=== PATIENT | male | born 1935 | race Caucasian/White ===

== ENCOUNTER 2018-12-21 19:29 | Observation (INO) ==
[2018-12-21] MEDS ORDERED: 0.9 % Sodium Chloride 1,000 ML IVC ONE (19:57)
[2018-12-21 20:35] LABS: Basophils % 0.1 %; Eosinophils # 0.1 K/mcL (0.0-0.6); Eosinophils % 0.6 %; Hematocrit 43.3 % (37.5-50.1); Hemoglobin 14.4 g/dL (12.9-16.9); Immature Granulocytes % 0.4 % (0-4); Lymphocytes # 0.6 K/mcL (0.6-4.6); Lymphocytes % 4.6 %; Mean Corpuscular HGB Conc 33.3 g/dL (31.6-35.5); Mean Corpuscular Hemoglobin 30.6 pg (28.0-33.3); Mean Corpuscular Volume 92.1 fL (83.0-100.0); Mean Platelet Volume 9.8 fL (9.4-12.4); Monocytes # 1.2 K/mcL (0.0-1.3); Monocytes % 9.5 %; Neutrophils # 10.5 K/mcL (1.6-8.9); Platelet Count 141 K/mcL (140-400); Red Cell Distribution Width 13.4 % (11.5-14.5); Segmented Neutrophils % 84.8 %
[2018-12-21 20:53] LABS: BUN/Creatinine Ratio 20 (6-26); Blood Urea Nitrogen 19 mg/dL (8-23); Calcium 8.9 mg/dL (8.6-10.3); Carbon Dioxide 26 mEq/L (23-29); Chloride 104 mEq/L (98-107); Glucose 114 mg/dL (70-105); Osmolality,Calculated 287 (280-300); Potassium 3.4 mEq/L (3.5-5.1); Sodium 137 mEq/L (136-145); eGFR For Non-African Americans > 60 (> 60)
[2018-12-21] MEDS ORDERED: Azithromycin 500 MG in D5% in Water 250 ML IVPB ONE (21:20)
[2018-12-21] MEDS ORDERED: cefTRIAXone 2,000 MG in Water for inj. (sterile) 20 ML 20 ML IVP ONE (21:26)
--- NOTE | 2018-12-21 22:41 | Emergency Department Note ---
Disposition Clinical Impression: Unable to ambulate, SOB (shortness of breath) Community acquired pneumonia Qualifiers: Laterality: unspecified laterality Qualified Code(s): J18.9 - Pneumonia, unspecified organism Fever Qualifiers: Fever type: unspecified Qualified Code(s): R50.9 - Fever, unspecified Disposition: Admitted As Inpatient Condition: Fair Referrals: Symone Carrasco MD [Primary Care Provider] - Forms: ED Satisfaction Letter Time of Disposition: 22:42 General Adult HPI - General Chief complaint: ED Shortness of Breath/Dyspnea Stated complaint: Flu symptoms Time Seen by Provider: 12/21/18 19:35 Source: patient, EMS Limitations: no limitations - History of Present Illness Pain Scale: 0 - Related Data Allergies Allergy/AdvReac Type Severity Reaction Status Date / Time Iodinated Contrast- Oral and Allergy Hives Verified 02/18/17 10:59 IV Dye [Iodinated Contrast Media - Oral and] Past Medical History - Past Medical History Medical history: Reports: atrial fibrillation, coronary artery disease, hyp erlipidemia, myocardial infarction, thyroid disease, other - Social History Smoking Status: Never smoker Alcohol use: Reports: none Drug use: Reports: none Physical Exam - General Limitations: no limitations General appearance: alert, in no apparent distress Course Vital Signs Temperature 101.5 F H 12/21/18 19:33 Pulse Rate 72 12/21/18 19:33 Respiratory Rate 20 12/21/18 19:33 Blood Pressure 147/70 12/21/18 19:33 O2 Sat by Pulse Oximetry 96 12/21/18 19:33 Temperature 101.5 F H 12/21/18 19:33 Pulse Rate 76 12/21/18 22:26 Respiratory Rate 20 12/21/18 22:26 Blood Pressure 138/68 12/21/18 22:26 O2 Sat by Pulse Oximetry 94 12/21/18 22:26 Oxygen Delivery Oxygen Delivery Room Air Medical Decision Making - Lab Data Result diagrams: 12/21/18 20:22 12/21/18 20:22 Lab Results 12/21/18 12/21/18 12/21/18 Range/Units 20:22 20:22 20:22 WBC 12.4 H (4.3-11.1) K/mcL RBC 4.70 (4.19-5.50) M/mcL Hgb 14.4 (12.9-16.9) g/dL Hct 43.3 (37.5-50.1) % MCV 92.1 (83.0-100.0) fL MCH 30.6 (28.0-33.3) pg MCHC 33.3 (31.6-35.5) g/dL RDW 13.4 (11.5-14.5) % Plt Count 141 (140-400) K/mcL MPV 9.8 (9.4-12.4) fL Immature Gran % 0.4 (0-4) % Seg Neutrophils % 84.8 % Lymphocytes % 4.6 % Monocytes % 9.5 % Eosinophils % 0.6 % Basophils % 0.1 % Neutrophils # 10.5 H (1.6-8.9) K/mcL Lymphocytes # 0.6 (0.6-4.6) K/mcL Monocytes # 1.2 (0.0-1.3) K/mcL Eosinophils # 0.1 (0.0-0.6) K/mcL Basophils # 0.0 (0.0-0.2) K/mcL Sodium 137 (136-145) mEq/L Potassium 3.4 L (3.5-5.1) mEq/L Chloride 104 (98-107) mEq/L Carbon Dioxide 26 (23-29) mEq/L BUN 19 (8-23) mg/dL Creatinine 0.95 (0.70-1.30) mg/dL Est GFR ( Amer) > 60 (> 60) Est GFR (Non-Af Amer) > 60 (> 60) BUN/Creatinine Ratio 20 (6-26) Glucose 114 H (70-105) mg/dL Calculated Osmolality 287 (280-300) Lactic Acid 1.8 (0.5-2.2) mmol/L Calcium 8.9 (8.6-10.3) mg/dL Attestation Statement - Attestation Attestation: I examined this patient and my medical decision-making was reviewed with the [employer]ER/PA/Advanced Practice Nurse/Resident Physician. I agree with the documented findings, disposition and treatment plan as described except to the extent set forth below. I did see the patient spoke with him and examine him and is spoke with his family and he does have significant fever and weakness the point that he is not able to ambulate as well as respiratory symptoms including a cough. He denies any shortness of breath but daughter thinks he is short of breath. Is admitted on IV antibiotics, cultures, hospitalist has accepted the patient for admission 2040
--- NOTE | 2018-12-21 22:53 | Emergency Department Note ---
Disposition Clinical Impression: Unable to ambulate, SOB (shortness of breath) Community acquired pneumonia Qualifiers: Laterality: unspecified laterality Qualified Code(s): J18.9 - Pneumonia, unspecified organism Fever Qualifiers: Fever type: unspecified Qualified Code(s): R50.9 - Fever, unspecified Disposition: Admitted As Inpatient Condition: Fair Referrals: Symone Carrasco MD [Non-Partnered Physician] - Forms: ED Satisfaction Letter Time of Disposition: 23:05 General Adult HPI - General Chief complaint: ED Shortness of Breath/Dyspnea Stated complaint: Flu symptoms Time Seen by Provider: 12/21/18 19:35 Source: patient, EMS Limitations: no limitations - History of Present Illness HPI Narrative: Dayday Almonte is an 83-year-old male presenting with productive cough and weakness. He has a past medical history of atrial fibrillation, no longer on blood thinner, CAD, and hypertension. Patient states that he began to have a productive cough on Saturday, denies any hemoptysis. On Saturday he began to have increased weakness with difficulty standing and then today the patient was unable to stand or ambulate due to the extreme weakness. Patient admits to fever, chills, productive cough and shortness of breath. He denies any headache, dizziness, vision or hearing changes, difficulty swallowing, chest pain, abdominal pain, change in diarrhea or constipation, dysuria, calf pain. Pain Scale: 0 - Related Data Allergies Allergy/AdvReac Type Severity Reaction Status Date / Time Iodinated Contrast- Oral and Allergy Hives Verified 02/18/17 10:59 IV Dye [Iodinated Contrast Media - Oral and] Constitutional: Reports: fever, chills, weakness Eyes: Denies: vision change ENT ED: Reports: congestion. Denies: hearing loss Cardiovascular: Denies: chest pain, palpitations, dyspnea on exertion, syncope Respiratory: Reports: cough, dyspnea Gastrointestinal: Denies: abdominal pain, nausea, vomiting Genitourinary: Denies: dysuria Musculoskeletal: Denies: back pain Integumentary: Denies: rash Neurological: Reports: weakness. Denies: paresthesias Psychiatric: Denies: anxiety, depression Endocrine: Reports: fatigue Past Medical History - Past Medical History Medical history: Reports: atrial fibrillation, coronary artery disease, hyperlipidemia, myocardial infarction, thyroid disease, other - Social History Smoking Status: Never smoker Alcohol use: Reports: none Drug use: Reports: none Physical Exam Gen.: Vitals noted. Moderate distress. AAOx3, resting comfortably in bed. HEENT: PERRL/EOMI, oropharynx clear, Normocephalic, atraumatic, MMM, tympanic membranes clear. Neck: Supple. No adenopathy. Trachea midline. Cardiac: RRR, no murmur, +S1/S2, No BLE edema Pulmonary: Distant breath sounds bilaterally, bilateral wheezes present, no rales or rhonchi, equal chest expansion, unlabored breathing Abdomen: soft, nontender, BS noted, no guarding, no palpable HSM Back: Nontender throughout. Skin: warm and dry, no visible lesions. MSK: ROM intact, no joint swelling noted, gait no assessed while in bed. Non tender calf or clubbing Neuro: A&Ox3, moves all extremities, no focal deficits, sensation intact, CN2-12 intact Psych: Appropriate mood and behavior, AOx3 - General Limitations: no limitations General appearance: alert, in no apparent distress Course Course Narrative: Patient seen and examined at bedside, discussed past medical history and history of present illness. Patient is currently febrile, as well as having productive cough. At this time we will do some labs, CBC, BMP, lactate, influenza antigens, 1 L normal saline bolus, Blood cultures, chest x-ray. Chest x-ray showed stable mild cardiomyopathy, grossly clear lungs, and chronic right shoulder rotator cuff. CBC significant for white blood cell count 12.4, lactic acid within normal limits, influenza antigens were negative. U/A and blood cultures remain pending. At this time patient will be started on azithromycin and ceftriaxone empirically. Discussed case with hospitalist, patient has fever, productive cough, and extreme weakness and inability to ambulate. Hospitalist recommended urine antigens for strept and legionella as well as respiratory infection panel which remains pending. Hospitalist has agreed to accept admission. Vital Signs Temperature 101.5 F H 12/21/18 19:33 Pulse Rate 72 12/21/18 19:33 Respiratory Rate 20 12/21/18 19:33 Blood Pressure 147/70 12/21/18 19:33 O2 Sat by Pulse Oximetry 96 12/21/18 19:33 Temperature 101.5 F H 12/21/18 19:33 Pulse Rate 76 03/03/19 22:26 Respiratory Rate 20 12/21/18 22:26 Blood Pressure 138/68 12/21/18 22:26 O2 Sat by Pulse Oximetry 94 12/21/18 22:26 Oxygen Delivery Oxygen Delivery Room Air Medical Decision Making - Medical Records Medical records reviewed: Yes I reviewed the patient's medical records. - Lab Data Lab results reviewed: Yes I reviewed the patient's lab results. Result diagrams: 12/21/18 20:22 12/21/18 20:22 Lab Results 12/21/18 12/21/18 12/21/18 Range/Units 20:22 20:22 20:22 WBC 12.4 H (4.3-11.1) K/mcL RBC 4.70 (4.19-5.50) M/mcL Hgb 14.4 (12.9-16.9) g/dL Hct 43.3 (37.5-50.1) % MCV 92.1 (83.0-100.0) fL MCH 30.6 (28.0-33.3) pg MCHC 33.3 (31.6-35.5) g/dL RDW 13.4 (11.5-14.5) % Plt Count 141 (140-400) K/mcL MPV 9.8 (9.4-12.4) fL Immature Gran % 0.4 (0-4) % Seg Neutrophils % 84.8 % Lymphocytes % 4.6 % Monocytes % 9.5 % Eosinophils % 0.6 % Basophils % 0.1 % Neutrophils # 10.5 H (1.6-8.9) K/mcL Lymphocytes # 0.6 (0.6-4.6) K/mcL Monocytes # 1.2 (0.0-1.3) K/mcL Eosinophils # 0.1 (0.0-0.6) K/mcL Basophils # 0.0 (0.0-0.2) K/mcL Sodium 137 (136-145) mEq/L Potassium 3.4 L (3.5-5.1) mEq/L Chloride 104 (98-107) mEq/L Carbon Dioxide 26 (23-29) mEq/L BUN 19 (8-23) mg/dL Creatinine 0.95 (0.70-1.30) mg/dL Est GFR ( Amer) > 60 (> 60) Est GFR (Non-Af Amer) > 60 (> 60) BUN/Creatinine Ratio 20 (6-26) Glucose 114 H (70-105) mg/dL Calculated Osmolality 287 (280-300) Lactic Acid 1.8 (0.5-2.2) mmol/L Calcium 8.9 (8.6-10.3) mg/dL Chlamy pneumoniae PCR (Not Detect) Adenovirus (PCR) (Not Detect) B. pertussis DNA (PCR) (Not Detect) B.parapertussis DNA PCR (Not Detect) Coronavirus OC43 (PCR) (Not Detect) Coronavirus HKU1 (PCR) (Not Detect) Coronavirus 229E (PCR) (Not Detect) Coronavirus NL63 (PCR) (Not Detect) Human Metapneumovir PCR (Not Detect) Influenza A (H1) PCR (Not Detect) Influ A (H1N1/09) PCR (Not Detect) Influenza A (H3) PCR (Not Detect) Influenza A Untype (PCR) (Not Detect) Influenza Type B (PCR) (Not Detect) M.pneumoniae DNA (PCR) (Not Detect) Parainfluenza 1 (PCR) (Not Detect) Parainfluenza 2 (PCR) (Not Detect) Parainfluenza 3 (PCR) (Not Detect) Parainfluenza 4 (PCR) (Not Detect) RSV (PCR) (Not Detect) Entero/Rhino (PCR) (Not Detect) 12/21/18 Range/Units 22:03 WBC (4.3-11.1) K/mcL RBC (4.19-5.50) M/mcL Hgb (12.9-16.9) g/dL Hct (37.5-50.1) % MCV (83.0-100.0) fL MCH (28.0-33.3) pg MCHC (31.6-35.5) g/dL RDW (11.5-14.5) % Plt Count (140-400) K/mcL MPV (9.4-12.4) fL Immature Gran % (0-4) % Seg Neutrophils % % Lymphocytes % % Monocytes % % Eosinophils % % Basophils % % Neutrophils # (1.6-8.9) K/mcL Lymphocytes # (0.6-4.6) K/mcL Monocytes # (0.0-1.3) K/mcL Eosinophils # (0.0-0.6) K/mcL Basophils # (0.0-0.2) K/mcL Sodium (136-145) mEq/L Potassium (3.5-5.1) mEq/L Chloride (98-107) mEq/L Carbon Dioxide (23-29) mEq/L BUN (8-23) mg/dL Creatinine (0.70-1.30) mg/dL Est GFR ( Amer) (> 60) Est GFR (Non-Af Amer) (> 60) BUN/Creatinine Ratio (6-26) Glucose (70-105) mg/dL Calculated Osmolality (280-300) Lactic Acid (0.5-2.2) mmol/L Calcium (8.6-10.3) mg/dL Chlamy pneumoniae PCR Not Detected (Not Detect) Adenovirus (PCR) Not Detected (Not Detect) B. pertussis DNA (PCR) Not Detected (Not Detect) B.parapertussis DNA PCR Not Detected (Not Detect) Coronavirus OC43 (PCR) Not Detected (Not Detect) Coronavirus HKU1 (PCR) Not Detected (Not Detect) Coronavirus 229E (PCR) Not Detected (Not Detect) Coronavirus NL63 (PCR) Not Detected (Not Detect) Human Metapneumovir PCR Not Detected (Not Detect) Influenza A (H1) PCR Not Detected (Not Detect) Influ A (H1N1/09) PCR Not Detected (Not Detect) Influenza A (H3) PCR Not Detected (Not Detect) Influenza A Untype (PCR) Not Detected (Not Detect) Influenza Type B (PCR) Not Detected (Not Detect) M.pneumoniae DNA (PCR) Not Detected (Not Detect) Parainfluenza 1 (PCR) Not Detected (Not Detect) Parainfluenza 2 (PCR) Not Detected (Not Detect) Parainfluenza 3 (PCR) Not Detected (Not Detect) Parainfluenza 4 (PCR) Not Detected (Not Detect) RSV (PCR) Not Detected (Not Detect) Entero/Rhino (PCR) Not Detected (Not Detect) - Radiology Data Radiology results reviewed: Yes I reviewed the patient's radiology results. Chest X-Ray 12/21/18 19:53 IMPRESSION: Stable mild cardiomegaly. Grossly clear lungs. Chronic right shoulder rotator cuff tear. D/ / Dimitri Fall MD / Dimitri Fall MD Interpreting Provider: Dimitri Fall MD
[2018-12-21 23:03] LABS: Adenovirus Not Detected (Not Detect); Bordetella Pertussis Not Detected (Not Detect); Chlamydophila pneumoniae Not Detected (Not Detect); Coronavirus 229E Not Detected (Not Detect); Coronavirus HKU1 Not Detected (Not Detect); Coronavirus NL63 Not Detected (Not Detect); Coronavirus OC43 Not Detected (Not Detect); Human Metapneumovirus Not Detected (Not Detect); Human Rhinovirus/Enterovirus Not Detected (Not Detect); Influenza A Subtype 2009 H1 Not Detected (Not Detect); Influenza A Untypeable Not Detected (Not Detect); Influenza B Not Detected (Not Detect); Mycoplasma pneumoniae Not Detected (Not Detect); Parainfluenza Virus 1 Not Detected (Not Detect); Parainfluenza Virus 2 Not Detected (Not Detect); Parainfluenza Virus 3 Not Detected (Not Detect); Parainfluenza Virus 4 Not Detected (Not Detect); Respiratory Syncytial Virus Not Detected (Not Detect)
[2018-12-22] MEDS ORDERED: Potassium Chloride Elixir 20 MEQ/15 ML UDC PO ONE (00:09)
[2018-12-22] MEDS ORDERED: 0.9 % Sodium Chloride 1,000 ML IVC SCH (00:15)
--- NOTE | 2018-12-22 00:29 | Internal Med History&Physical ---
Date of Encounter: 12/21/18 Time of Encounter: 23:50 Internal Medicine - H&P: HPI Chief complaint: cough Admitted From: Home Plans for Post Hospital Care: Home () History of present illness: Dayday Almonte is a pleasant 83-year-old man with an unclear past medical history as he is not well versed in this situation but on chart review is noted to have hypertension, coronary artery disease and atrial fibrillation not on anticoagulants as emergency room complaining of productive cough over the past 3 days with thick yellowish phlegm produced. He has also had increased weakness and generalized malaise with fever and chills now compounded by shortness of breath. He denies being an active smoker stating that he quit in 1969. He denies any chest pain, abdominal pain, nausea, vomiting or diarrhea. He denies any ill contacts at home. In the ER he was notably febrile at 101.5F. Lab work revealed a leukocyte count of 12.4 and negative respiratory virus panel. Chest x-ray report revealed no anomalies however on my interpretation there seems to be a developing right-sided infiltrate. He is now admitted for further care. Family history reviewed and found non-contributory. I obtained a history of his medications from his retail pharmacy to ascertain what he takes and concurrently what his comorbid conditions are. Vitals: Reviewed General: Well-developed elderly male lying in bed in no acute distress. Skin: Warm and supple. HEENT: Dry mucous membranes. No conjunctivae pallor. Neck: No lymphadenopathy. No JVD. No carotid bruits. No palpable thyroid. Chest: Diminished thoracic expansion. Reduced breath sounds in both lung rajput with fine rales auscultated in the right base predominantly and scattered wheezes. Heart: Normal S1 & S2; rhythmic. No rubs or murmurs. Abdomen: Non-distended, soft and non-tender to palpation. No peritoneal reaction. Extremities: No clubbing, cyanosis or edema. No calf tenderness. Normal distal pulses. Neurological: Awake, alert and oriented to person, place and time. No focal deficits. Psych: Affect appropriate. Past Med Surg Social Fam HX - Past Medical History Medical history: atrial fibrillation, coronary artery disease, hyperlipidemia, myocardial infarction, thyroid disease, other Additional medical history: enlarged prostate - Past Surgical History Additional surgical history: prostate sx - Social History Smoking Status: Never smoker Smokeless Tobacco Status: No Alcohol use: none Drug use: none Internal Medicine - H&P: Meds Allergy/AdvReac Type Severity Reaction Status Date / Time Iodinated Contrast- Oral and Allergy Hives Verified 02/18/17 10:59 IV Dye [Iodinated Contrast Media - Oral and] All Systems PM: A 10-system review of systems was performed and is negative for pertinent findings except as documented above in the HPI. - Constitutional Vitals: Temp Pulse Resp BP Pulse Ox 101.5 F H 76 18 131/71 94 12/21/18 19:33 12/21/18 22:26 12/21/18 23:17 12/21/18 23:17 12/21/18 22:26 Exam: As above. Internal Med - H&P Results - Labs CBC & Chem 7: 12/21/18 20:22 12/21/18 20:22 Labs: Short CBC 12/21/18 Range/Units 20:22 WBC 12.4 H (4.3-11.1) K/mcL Hgb 14.4 (12.9-16.9) g/dL Hct 43.3 (37.5-50.1) % Plt Count 141 (140-400) K/mcL Neutrophils # 10.5 H (1.6-8.9) K/mcL BMP 12/21/18 20:22 Sodium 137 Potassium 3.4 L Chloride 104 Carbon Dioxide 26 BUN 19 Creatinine 0.95 Glucose 114 H Calcium 8.9 - Impressions ITS Impressions Chest X-Ray 12/21/18 19:53 IMPRESSION: Stable mild cardiomegaly. Grossly clear lungs. Chronic right shoulder rotator cuff tear. D/ / Dimitri Fall MD / Dimitri Fall MD Interpreting Provider: Dimitri Fall MD - Assessment and Plan (1) Sepsis due to pneumonia Current Visit: Yes Status: Acute Assessment and plan: Sepsis syndrome as evidenced by fever and leukocytosis with a suspected pulmo nary source. Being a community-acquired process we will start the patient on ceftriaxone and azithromycin empirically. Blood cultures have been sent and we will collect sputum culture. Urine antigen testing will also be sent. Advise to obtain a chest CT without contrast for better evaluation of his prominent parenchyma given the discrepant results on x-ray but my high clinical suspicion. Fluid resuscitation ordered. Symptomatically relief measures with acetaminophen, nebulizer and antitussive a gents. (2) CAD (coronary artery disease) Current Visit: Yes Status: Acute Assessment and plan: Will continue the daily daily long acting nitrate and statin therapy. Currently asymptomatic. Qualifiers: Coronary Disease-Associated Artery/Lesion type: [place] artery [place] vs. transplanted heart: [place] heart Associated angina: without angina Qualified Code(s): I25.10 - Atherosclerotic heart disease of [place] coronary artery without angina pectoris (3) HTN (hypertension) Current Visit: Yes Status: Acute Assessment and plan: Continue daily lisinopril. Currently well controlled. Qualifiers: Hypertension type: essential hypertension Qualified Code(s): I10 - Essential (primary) hypertension (4) Hypothyroid Current Visit: Yes Status: Acute Assessment and plan: Seems clinically euthyroid. Will check biochemical status and continue levothyroxine. Qualifiers: Hypothyroidism type: unspecified Qualified Code(s): E03.9 - Hypothyroidism, unspecified (5) BPH (benign prostatic hyperplasia) Current Visit: Yes Status: Acute Assessment and plan: On finasteride. Qualifiers: Lower urinary tract symptom presence: unspecified whether lower urinary tract symptoms present Qualified Code(s): N40.0 - Benign prostatic hyperplasia without lower urinary tract symptoms - Time Spent With Patient Total time spent is greater than 50% in coordination of care (as documented) at patient's floor/unit and/or counseling patient: Greater than 35 minutes
[2018-12-22] MEDS: GuaiFENesin/Dextromethorphan TABLET PO SCH ×2 (01:24→07:56)
[2018-12-22] MEDS: Acetaminophen 325 MG TABLET PO PRN ×2 (01:24→16:55)
[2018-12-22] MEDS: Ipratropium/Albuterol Neb 3 ML IH SCH ×3 (04:13→07:26)
[2018-12-22 05:45] LABS: Basophils % 0.1 %; Eosinophils % 0.3 %; Hematocrit 37.6 % (37.5-50.1); Immature Granulocytes % 0.4 % (0-4); Lymphocytes # 0.6 K/mcL (0.6-4.6); Lymphocytes % 5.4 %; Mean Corpuscular HGB Conc 33.8 g/dL (31.6-35.5); Mean Corpuscular Hemoglobin 30.5 pg (28.0-33.3); Mean Corpuscular Volume 90.2 fL (83.0-100.0); Mean Platelet Volume 10.1 fL (9.4-12.4); Monocytes # 1.2 K/mcL (0.0-1.3); Monocytes % 10.5 %; Neutrophils # 9.3 K/mcL (1.6-8.9); Platelet Count 134 K/mcL (140-400); Red Blood Count 4.17 M/mcL (4.19-5.50); Red Cell Distribution Width 13.6 % (11.5-14.5); Segmented Neutrophils % 83.3 %
[2018-12-22 05:46] LABS: Hemoglobin 12.7 g/dL (12.9-16.9)
[2018-12-22] MEDS ORDERED: *HR* Heparin 5,000 UNIT/ML VIAL SQ SCH (06:00)
[2018-12-22 06:01] LABS: BUN/Creatinine Ratio 18 (6-26); Blood Urea Nitrogen 16 mg/dL (8-23); Calcium 8.5 mg/dL (8.6-10.3); Carbon Dioxide 24 mEq/L (23-29); Chloride 109 mEq/L (98-107); Glucose 116 mg/dL (70-105); Osmolality,Calculated 288 (280-300); Potassium 3.7 mEq/L (3.5-5.1); Sodium 138 mEq/L (136-145); eGFR For Non-African Americans > 60 (> 60)
[2018-12-22] MEDS ORDERED: Azithromycin 500 MG in D5% in Water 250 ML IVPB SCH (09:00)
[2018-12-22] MEDS ORDERED: Finasteride 5 MG TABLET PO SCH (09:00)
[2018-12-22] MEDS ORDERED: cefTRIAXone 1,000 MG in Water for inj. (sterile) 20 ML 20 ML IVPB SCH (09:00)
[2018-12-22] MEDS ORDERED: Aspirin 81 MG TAB.CHEW PO SCH (09:00)
[2018-12-22 10:58] LABS: Bilirubin,Urine Negative (Negative); Blood,Urine Large (Negative); Clarity,Urine Cloudy (Clear); Color,Urine Dark Yellow (Yellow); Glucose,Urine (UA) Normal (Normal); Ketones,Urine Negative (Negative); Leukocyte Esterase,Urine Small (Negative); Nitrite,Urine Negative (Negative); PH,Urine 5.5 pH Units (5.0-8.0); Protein,Urine 100 mg/dL (Neg-Trace); Specific Gravity,Urine 1.017 (1.010-1.025); Urobilinogen,Urine Normal (Normal)
[2018-12-22 10:59] LABS: Hyaline Casts,Urine Few per lpf (None-Few); Squamous Epithelial Cell,Urine Many per lpf (None-Few)
[2018-12-22 11:11] LABS: RBC,Urine 30-50 per hpf (0-3)
[2018-12-22 11:13] LABS: Bacteria,Urine Moderate per hpf (None-Few)
[2018-12-22 12:17] VITALS: BP 112/49
--- NOTE | 2018-12-22 13:58 | Discharge Summary ---
- NOTES TO OUTPATIENT PROVIDER Notes to Outpatient Provider: PPC in 2- 5 days, ambulate slowly at home, do not sit or lie down for porlonged period of time Orders not resulted at time of discharge: Pending orders 12/21/18 20:22 Culture,Blood [BC] Stat 12/22/18 00:12 Culture,Sputum with Gram Stain [RM] Stat 12/22/18 09:15 Procalcitonin Stat Date of Encounter: 12/22/18 Time of Encounter: 13:56 - Discharge Diagnosis (1) Community acquired pneumonia Priority: Primary Status: Acute Qualifiers: Laterality: unspecified laterality Qualified Code(s): J18.9 - Pneumonia, unspecified organism Hospital course: Dayday Almonte is a pleasant 83-year-old man with an unclear past medical history as he is not well versed in this situation but on chart review is noted to have hypertension, coronary artery disease and atrial fibrillation not on anticoagulants as emergency room complaining of productive cough over the past 3 days with thick yellowish phlegm produced. He has also had increased weakness and generalized malaise with fever and chills now compounded by shortness of breath. He denies being an active smoker stating that he quit in 1969. He denies any chest pain, abdominal pain, nausea, vomiting or diarrhea. He denies any ill contacts at home. In the ER he was notably febrile at 101.5F. Lab work revealed a leukocyte count of 12.4 and negative respiratory virus panel. Pt was kept in the hospital and pt was given CT which showed that pt has viral pna, no other isseus, pt is being discharged for viral pna. Time: 35min - Time Spent with Patient Total time spent providing and/or coordinating discharge services: - Discharge Medications Prescriptions: New Levofloxacin [Levaquin] 500 mg PO DAILY #5 tablet Home Medications: Levofloxacin [Levaquin] 500 mg PO DAILY #5 tablet 12/22/18 [Rx] Allergies/Adverse Reactions: Allergy/AdvReac Type Severity Reaction Status Date / Time Iodinated Contrast- Oral and Allergy Hives Verified 02/18/17 10:59 IV Dye [Iodinated Contrast Media - Oral and] Date of admission: 12/21/18 23:11 Primary care physician: Symone Carrasco MD Consults: 12/22/18 07:42 PT [Consult to Physical Therapy] [CONS] Routine Comment: Evaluate, develop and implement POC Reason for Consult: debilty Does patient have active BEDREST order?: No Is patient medically & hemodynamically stable?: Yes Patient assessed for mobility or mobilized this visit?: Yes 12/22/18 07:43 OT [Consult to Occupational Therapy] [CONS] Routine Comment: Evaluate, develop and implement POC Reason for Consult: deblity Does patient have active BEDREST order?: No Is patient medically & hemodynamically stable?: Yes Patient assessed for mobility or mobilized this visit?: Yes 12/22/18 08:28 Consult to Nurse Navigator [CONS] Routine Comment: pneumonia - Constitutional Vitals: Temp Pulse Resp BP Pulse Ox 99.1 F 63 15 112/49 92 12/22/18 12:10 12/22/18 12:10 12/22/18 12:10 12/22/18 12:10 12/22/18 12:10 Exam: As above. - Patient Status Disposition: Home, Self-Care Condition: Fair - Discharge Instructions Follow Up With: Symone Carrasco MD [Primary Care Provider] -
== END 2018-12-22 18:13 | disposition home or self-care (01) ==
LOC: 3ANU 19:29 → EMEROOARM 19:29 → SUATTDRO 23:11 → 3ANU 23:25
PROVIDERS: ADMIT Internal Medicine; ATTEND Internal Medicine

== ENCOUNTER 2021-03-27 08:34 | Observation (INO) ==
[2021-03-27 09:09] LABS: Basophils % 0.3 %; Eosinophils # 0.5 K/mcL (0.0-0.6); Eosinophils % 5.7 %; Hematocrit 40.9 % (37.5-50.1); Hemoglobin 13.5 g/dL (12.9-16.9); Immature Granulocytes % 0.4 % (0-4); Lymphocytes # 0.5 K/mcL (0.6-4.6); Mean Corpuscular Hemoglobin 30.5 pg (28.0-33.3); Mean Corpuscular Volume 92.5 fL (83.0-100.0); Mean Platelet Volume 9.3 fL (9.4-12.4); Monocytes # 0.6 K/mcL (0.0-1.3); Monocytes % 6.1 %; Neutrophils # 7.4 K/mcL (1.6-8.9); Platelet Count 143 K/mcL (140-400); Red Blood Count 4.42 M/mcL (4.19-5.50); Red Cell Distribution Width 13.2 % (11.5-14.5); Segmented Neutrophils % 82.5 %
[2021-03-27 09:30] LABS: BUN/Creatinine Ratio 23 (6-26); Blood Urea Nitrogen 22 mg/dL (8-23); Carbon Dioxide 25 mEq/L (23-29); Chloride 108 mEq/L (98-107); Glucose 120 mg/dL (70-105); Osmolality,Calculated 297 (280-300); Potassium 3.6 mEq/L (3.5-5.1); Sodium 141 mEq/L (136-145); eGFR For African Americans > 60 (> 60); eGFR For Non-African Americans > 60 (> 60)
[2021-03-27 09:31] LABS: Troponin I < 0.03 ng/mL (< 0.04)
[2021-03-27] MEDS ORDERED: Ondansetron 4 MG/2 ML VIAL IVP PRN (12:05)
[2021-03-27] MEDS ORDERED: Naloxone 0.4 MG/ML INJ IVP PRN (12:05)
[2021-03-27] MEDS ORDERED: Perflutren Lipid Microsphere 1.3 ML in 0.9 % Sodium Chloride 8.7 ML IVP PRN (12:07)
[2021-03-27] MEDS ORDERED: Furosemide 40 MG/4 ML VIAL IVP ONE (12:07)
[2021-03-28] MEDS ORDERED: *HR* Enoxaparin 40 MG/0.4 ML SYRINGE SQ SCH (06:00)
[2021-03-28 06:08] LABS: Estimated Average Glucose 117 mg/dl; Hemoglobin A1C 5.7 %
[2021-03-28 06:27] LABS: BUN/Creatinine Ratio 24 (6-26); Blood Urea Nitrogen 24 mg/dL (8-23); Calcium 9.5 mg/dL (8.6-10.3); Carbon Dioxide 26 mEq/L (23-29); Chloride 104 mEq/L (98-107); Cholesterol 141 mg/dL (< 200); Glucose 106 mg/dL (70-105); HDL Cholesterol 28 mg/dL (40-59); LDL Cholesterol,Calculated 85 mg/dL (< 100); Osmolality,Calculated 294 (280-300); Potassium 3.8 mEq/L (3.5-5.1); Sodium 140 mEq/L (136-145); Triglycerides 138 mg/dL (< 150); Troponin I < 0.03 ng/mL (< 0.04); eGFR For African Americans > 60 (> 60); eGFR For Non-African Americans > 60 (> 60)
[2021-03-28] MEDS ORDERED: Finasteride 5 MG TABLET PO SCH (09:00)
[2021-03-28] MEDS ORDERED: lisinopriL 10 MG TABLET PO SCH (09:00)
[2021-03-28] MEDS ORDERED: Aspirin Enteric Coated 325 MG Tablet PO SCH (09:00)
[2021-03-28] MEDS ORDERED: Metoprolol XL (24 HR) Succ 25 MG TAB.ER.24H PO SCH (11:15)
[2021-03-28 12:11] VITALS: BP 124/79
== END 2021-03-28 13:30 | disposition home or self-care (01) ==
LOC: EMEROOARM 08:34 → 3BNU 08:34 → SUATTDRO 11:36 → 3BNU 12:18
PROVIDERS: ADMIT Internal Medicine; ATTEND Internal Medicine